=== PATIENT | female | born 1960 | race Caucasian/White ===

== ENCOUNTER 2024-06-19 16:33 | Emergency (ER) | payer BC ==
[2024-06-19 17:21] LABS: BASO % 0.3 % (0.0-1.0); EOS # 0.2 10*3/uL (0.0-0.4); EOS % 2.3 % (1.0-4.0); HEMATOCRIT 35.7 % (37.0-47.0); MEAN CELL VOLUME 92.2 fl (81.0-99.0); MEAN CORPUSCULAR HGB 29.5 pg (27.0-31.0); MEAN CORPUSCULAR HGB CONC 31.9 g/dl (33.0-37.0); MEAN PLATELET VOLUME 10.5 fl (9.6-12.3); MONO # 0.5 10*3/uL (0.1-1.0); MONO % 6.9 % (3.0-9.0); NEUT # 5.3 10*3/uL (2.3-7.9); NEUT % 74.2 % (47.0-73.0); PLATELET COUNT AUTOMATED 173 10*3/uL (130-400); RED BLOOD COUNT 3.87 10*6/uL (4.10-5.10); RED CELL DISTRI WIDTH 14.6 % (0-14.5); WHITE BLOOD COUNT 7.1 10*3/uL (4.8-10.8)
[2024-06-19 17:30] LABS: BUN 7 mg/dl (9-23); CHLORIDE 106 mmol/L (98-107); POTASSIUM 3.9 mmol/L (3.4-5.1)
[2024-06-19] MEDS ORDERED: IOHEXOL 300 MG/ML 100 ML VIAL IV ONE (17:30)
[2024-06-19] MEDS ORDERED: AMOX-CLAV 875-1 EACH PO (18:56)
== END 2024-06-19 19:02 | disposition home or self-care (01) ==
LOC: ED 16:33
PROVIDERS: Physician Assistant Medical
DX: K11.20 Sialoadenitis, unspecified (principal); H91.8X2 Other specified hearing loss, left ear; R22.0 Localized swelling, mass and lump, head